=== PATIENT | female | born 2005 | race Hispanic/Latino ===

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

== ENCOUNTER 2023-05-20 09:11 | Emergency (ER) | payer MEDICAID, OTHER ==
[~2023-05-20] VITALS: Ht 160 cm; Wt 59.0 kg
[2023-05-20] MEDS: ACETAMINOPHEN 500 MG TABLET PO ONE (09:25)
[2023-05-20 09:36] LABS: SARS-CoV-2, RNA, NAAT NEGATIVE SARS CoV-2 (NEGATIVE)
[2023-05-20 09:43] LABS: INFLUENZA TYPE A Negative For Type A (NEGATIVE); INFLUENZA TYPE B Negative For Type B (NEGATIVE)
[2023-05-20 09:48] LABS: RAPID GROUP A STREP positive (NEGATIVE)
[2023-05-20 10:25] VITALS: TEMP 99.3
[2023-05-20] MEDS ORDERED: AMOX250L PO (10:46)
[2023-05-20 10:55] VITALS: BP 103/63; PULSE 97; RESP 18; O2SAT 99
== END 2023-05-20 10:56 | disposition home or self-care (01) ==
LOC: EDH 09:11
DX: J02.0 Streptococcal pharyngitis (principal); R50.9 Fever, unspecified; J45.909 Unspecified asthma, uncomplicated; Z20.822 Contact with and (suspected) exposure to COVID-19
CPT/HCPCS: 87635; 87804; 87880

== ENCOUNTER 2024-04-07 13:49 | Emergency (ER) | payer SELFPAY ==
[~2024-04-07] VITALS: Ht 160 cm; Wt 59.0 kg
[~2024-04-07 13:49] MED LIST changes: +AMOX250L PO
[2024-04-07 14:36] LABS: RAPID GROUP A STREP negative (NEGATIVE)
--- NOTE | 2024-04-07 14:39 | ERN ---
ED Note History of Present Illness Stated Complaint: VOMITTING,HEADACHE,FEVER Chief Complaint: Fever Time Seen by MD: 14:02 Time Seen by Midlevel: 14:08 Dictation: 18-year-old female with complaints of vomiting, fever and cough since yesterday. LMP states last week. Patient states her mom and brother has been sick with similar symptoms. Allergies: Coded Allergies: No Known Allergies (Unverified Allergy, Unknown, 11/26/21) Home Meds Active Scripts Amoxicillin Trihydrate (Amoxicillin 250 mg/5 ml Susp) 250 Mg/5 Ml Susp, 500 MG PO BID for 10 Days, #200 ML Prov:YASSINE LEVIN MD 05/20/23 Amoxicillin (Amoxicillin) 500 Mg Capsule, 500 MG PO BID for 7 Days, #30 CAP 0 Refills Prov:MAU GARCIA NP 11/26/21 Past Medical History Past Medical History: Asthma Surgical History: None LMP: Mar 29, 2024 Review of System Dictation Constitutional: Negative for fever,chills, and weight loss Eyes: Negative for injury, pain,redness, and discharge ENT: Negative for injury,pain or swelling Cardiovascular: Negative for chest pain, palpitations, and edema Respiratory: Negative for shortness of breath, cough, and wheezing, Abdomen/GI: Negative for abdominal pain, nausea, vomiting, diarrhea, and constipation Back: Negative for injury and pain : Negative for injury, bleeding and discharge MS/Extremity: Negative for injury and deformity Skin: Negative for rash, and discoloration Neuro: Negative for headache, weakness, numbness, tingling, and seizure Psych: Negative for suicide ideation, homicidal ideation, and hallucinations Review of Systems: was completed Initial Vital Sign VS Vital Signs Date Time Temp Pulse Resp B/P (MAP) Pulse Ox O2 Delivery O2 Flow Rate FiO2 04/07/24 13:59 100.6 115 18 110/69 96 Room Air 0 04/07/24 16:01 21 Physical Exam Dictation General: awake, alert, NAD Head/Face: Normocephalic, atraumatic Eyes: PERRL, EOMI, vision at baseline ENT: oral cavity clear, TMs clear, no signs of infection Neck: Trachea midline, supple, no nuchal rigidity Cardiovascular: RRR, normal S1/S2, No MRGs, no JVD Respiratory: CTAB, no respiratory distress, No rales or wheezes Abdomen: Soft, non-tender, non-distended, normal bowel sounds, no guarding or rebound. Skin: Warm, dry, normal turgor, no rash MS/Extremity: Pulses equal, no cyanosis, neurovascular intact, FROM Neuro: COAx4, GCS 15, strength 5/5, CN 2-12 intact, normal cerebellar exam, normal gait, Psych: Normal behavior, mood, and affect normal Results (Laboratory/Radiology) Laboratory/Radiology Laboratory Tests Test 04/07/24 14:07 Influenza Type A Antigen Positive For Type A Influenza Type B Antigen Negative For Type B SARS-CoV-2, RNA, NAAT NEGATIVE SARS CoV-2 Group A Streptococcus Rapid negative (NEGATIVE) Labs Reviewed?: Yes ED Course ED Course Orders Procedure Category Date Status Time Covid Rna Naat LAB 04/07/24 Complete 14:04 Influenza Type A & B, LAB 04/07/24 Complete Rapid 14:04 Rapid (Group A Strep) LAB 04/07/24 Complete 14:04 Acetaminophen 325 Tab PHA 04/07/24 Complete (Tylenol 325mg Tab 14:11 0.9%Nacl 1000ml (Ns PHA 04/07/24 Complete 1000ml) 14:11 Ondansetron 4mg Inj PHA 04/07/24 Complete (Zofran 4mg Inj) 14:39 Current Medications Medications (Trade) Dose Ordered Sig/Melba Route PRN Reason Start Time Stop Time Status Last Admin Dose Admin Acetaminophen (TYLenol 325MG TAB) 650 mg ONCE STAT PO 04/07/24 14:11 04/07/24 14:14 DC 04/07/24 14:47 Ondansetron HCl (zoFRAN 4MG INJ) 4 mg ONCE STAT IVP 04/07/24 14:39 04/07/24 14:40 DC 04/07/24 14:47 Sodium Chloride 1,000 ml @ 1,000 mls/hr Q1H STAT IV 04/07/24 14:11 04/07/24 15:10 DC 04/07/24 14:46 Vital Signs Date Time Temp Pulse Resp B/P (MAP) Pulse Ox O2 Delivery O2 Flow Rate FiO2 04/07/24 16:01 98.1 89 17 116/67 97 Room Air* 0 21 04/07/24 13:59 100.6 115 18 110/69 96 Room Air 0 Medical Decision Making MDM MDM: 18-year-old female with complaints of vomiting, fever and cough since yesterday. LMP states last week. Patient states her mom and brother has been sick with similar symptoms. Serology positive for flu A. Discussed findings with the patient. Educated patient to take [id number] medications to treat her symptoms like Tylenol or Motrin and I will prescribe Tamiflu to take home. Patient verbalized understanding, answered all questions. Differential diagnosis: Influenza, COVID, strep, viral syndrome Rationale: Tests considered and ordered secondary to shared decision making include: Previous outside records reviewed: Old ER visits. Risk of complication and/or morbidity or mortality of patient management: None Medications-Per medication reconciliation Need for hospitalization: Patient does not meet criteria for hospitalization. Need for emergency major/minor surgery: No There are no social concerns with this patient. Prescription drug management Prescriptions will include symptomatic care Patient's prior external medical records from other ER visits were reviewed by me as indicated. Prior testing and results from previous visits were reviewed. Prior tests were taken into account with medical decision making and resource utilization, independent historian/historians were used to obtain complete medical history. I independently interpreted the test that were performed, results were reviewed by me and considered findings on radiology if ordered. Medical management and examination interpretation discussions were had by me with other qualified healthcare professionals as indicated for the patient's care. DX & DISP Disposition: Discharge Departure Impression: Primary Impression: Influenza A Condition: Stable Scripts Oseltamivir Phosphate (Tamiflu) 75 Mg Cap 1 CAP PO BID for 5 Days, #10 CAP 0 Refills Prov: ISRRAEL GEIGER NP 04/07/24 Additional Instructions: You have influenza A. This viral infection could last anywhere from 7-10 days. Increase hydration. You can take Tylenol or Motrin to control fever body aches. Complete the dose of Tamiflu. Follow up with PCP in 1-2 days. Return to the emergency room as needed. Referrals: SELF,REFERRAL (PCP) Time of Disposition: 16:41 I have reviewed the case, and I agree with, Diagnosis and Plan ISRRAEL GEIGER NP Apr 07, 2024 14:39
[2024-04-07 14:46] LABS: SARS-CoV-2, RNA, NAAT NEGATIVE SARS CoV-2 (NEGATIVE)
[2024-04-07] MEDS: 0.9%NACL 1000ML 1,000 ML IV STA (14:46)
[2024-04-07] MEDS: acetaMINOPHEN 325 MG TAB PO STA (14:47)
[2024-04-07] MEDS: ondanSETRON 4MG INJ IVP STA (14:47)
[2024-04-07 14:54] LABS: INFLUENZA TYPE B Negative For Type B (NEGATIVE)
[2024-04-07 15:10] LABS: INFLUENZA TYPE A Positive For Type A (NEGATIVE)
[2024-04-07 16:01] VITALS: BP 116/67; PULSE 89; RESP 17; TEMP 98.1; O2SAT 97
[2024-04-07] MEDS ORDERED: OSEL75 PO (16:40)
== END 2024-04-07 16:55 | disposition home or self-care (01) ==
LOC: EDH 13:49
DX: J10.1 Influenza due to other identified influenza virus with other respiratory manifestations (principal); J45.909 Unspecified asthma, uncomplicated; Z20.822 Contact with and (suspected) exposure to COVID-19
CPT/HCPCS: 99283; 96374; 96361; 87635; 87880; 87804 ×2; J7030; J2405